=== PATIENT | female | born 1995 | race Caucasian/White ===

== ENCOUNTER 2019-12-08 16:40 | Emergency (ER) | payer BC ==
[2019-12-08] MEDS ORDERED: Ondansetron 4 MG Tab.DIS PO ONE (16:41)
[2019-12-08] MEDS ORDERED: Sodium Chloride 0.9% 10 ML Syringe FLUSH PRN (17:45)
[2019-12-08] MEDS ORDERED: HYDROmorphone 1 MG/ML Syringe IVPUSH ONE (18:22)
[2019-12-08 18:34] LABS: ANION GAP 11.3 mEq/L (7-13); CHLORIDE,CL 101 mmol/L (98-107); SODIUM,NA 140 mmol/L (136-145)
[2019-12-08] MEDS ORDERED: Sodium Chloride 0.9% 1,000 ML IV ONE (19:05)
--- NOTE | 2019-12-08 19:17 | EDM.PDOC ---
Scribed by Kailyn Gama 12/08/191916 for Lucía Yost NP <Lucía Yost - Last Filed: 12/08/19 19:16> ED HPI GENERAL MEDICAL PROBLEM - General Chief Complaint: Back Pain or Injury Stated Complaint: LOWER BACK PAIN/RT SIDE PAIN Time Seen by Provider: 12/08/19 18:13 Source of Information: Reports: Patient, RN, RN Notes Reviewed History Limitations: Reports: No Limitations - History of Present Illness INITIAL COMMENTS - FREE TEXT/NARRATIVE: Patient presents to ER with complaint of pain to right lower quadrant. This began as right lower back about 2:00 to 3:00 A.M. Pain now wraps around to the right lower quadrant. Denies chances of . States she has her appendix still. She has nausea, sexually active--no concerns for STD. No fever, chills, vomiting, diarrhea, chest pains, shortness of breath, urinary symptoms of frequency, urgency or burning. She has never had a kidney stone. She rates her pain 8/10 to right lower quadrant. She has tried Tylenol,, Ibuprofen, Pamprin with no help. 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: Acetaminophen, NSAIDS, Other Medication(s) right low back Pain Score (Numeric/FACES): 9 - Related Data Allergies Allergy/AdvReac Type Severity Reaction Status Date / Time Penicillins Allergy Other Verified 12/08/19 17:35 Home Meds: Home Meds Acetaminophen 500 mg PO Q4H PRN 12/08/19 [History] Ibuprofen 400 mg PO Q4H PRN 12/08/19 [History] Venlafaxine [Venlafaxine HCl ER] 150 mg PO DAILY 12/08/19 [History] Past Medical History HEENT History: Reports: None Cardiovascular History: Reports: None Respiratory History: Reports: None Gastrointestinal History: Reports: None Genitourinary History: Reports: None SCORER HELPER History: Reports: Other SCORER HELPER 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 Musculoskeletal History: Reports: None Neurological History: Reports: None Psychiatric History: Reports: None Endocrine/Metabolic History: Reports: None Hematologic History: Reports: None Immunologic History: Reports: None Oncologic (Cancer) History: Reports: None Dermatologic History: Reports: None - Infectious Disease History Infectious Disease History: Reports: None - Past Surgical History HEENT Surgical History: Reports: None Cardiovascular Surgical History: Reports: None Respiratory Surgical History: Reports: None GI Surgical History: Reports: None Social & Family History - Family History Family Medical History: Noncontributory ED ROS GENERAL - Review of Systems Review Of Systems: Comprehensive ROS is negative, except as noted in HPI. ED EXAM,LOWER BACK PAIN/INJURY - Physical Exam Exam: See Below Exam Limited By: No Limitations General Appearance: Alert, Moderate Distress Eye Exam: Bilateral Eye: EOMI, Normal Inspection, PERRL Ears: Normal External Exam, Normal Canal, Hearing Grossly Normal, Normal TMs Nose: Normal Inspection, Normal Mucosa, No Blood Throat/Mouth: Normal Inspection, Normal Lips, Normal Teeth, Normal Gums, Normal Oropharynx, Normal Voice, No Airway Compromise Head: Atraumatic, Normocephalic Neck: Normal Inspection, Supple, Non-Tender, Full Range of Motion Respiratory/Chest: No Respiratory Distress, Lungs Clear, Normal Breath Sounds, No Accessory Muscle Use, Chest Non-Tender Cardiovascular: Normal Peripheral Pulses, Regular Rate, Rhythm, No Edema, No Gallop, No JVD, No Murmur, No Rub GI/Abdominal: Other (tender right lower quadrant) (Female) Exam: Deferred Rectal (Female) Exam: Deferred Back Exam: Normal Inspection, Full Range of Motion, NT Extremities: Normal Inspection, Normal Range of Motion, Non-Tender, No Pedal Edema, Normal Capillary Refill Neurological: Alert, Normal Mood/Affect, Normal Dorsiflexion, CN II-XII Intact, Normal Plantar Flexion, Normal Gait, Normal Reflexes, No Motor/Sensory Deficits, Oriented x 3 Psychiatric: Normal Affect, Normal Mood Skin Exam: Warm, Dry, Intact, Normal Color, No Rash Lymphatic: No Adenopathy Departure - Departure Disposition: Home, Self-Care 01 Clinical Impression: Pyelonephritis - Discharge Information Instructions: Pyelonephritis, Adult, [id number] Forms: ED Department Discharge Additional Instructions: Tylenol and or Ibuprofen as needed for pain. Rest the next few days. Lots of fluids as much as possible. Zofran 1 tablet every 6 hrs as needed for nausea. RX given to the patient and 2 sent home from the ED. Cephalexin, 1 capsule 4 times a day for the next 10 days. RX given to the patient start tomorrow afternoon. If pain not controlled with above. [place] 1 tablet every 6 hrs with food as needed for pain. RX given to the patient. Return to the ED if new or worsening symptoms especially if uncontrolled fever or unable to tolerate oral medications or fluids. Follow up with PCP in the next 4-6 days if not improving sooner if worse. Sepsis Event Note (ED) - Evaluation Sepsis Screening Result: No Definite Risk <Herson Garcia - Last Filed: 12/08/19 21:59> Course - Vital Signs Last Recorded V/S: Last Vital Signs Temp 96.8 F L 12/08/19 17:29 Pulse 95 12/08/19 17:29 Resp 18 12/08/19 17:29 BP 127/91 H 12/08/19 17:29 Pulse Ox 99 12/08/19 17:29 - Orders/Labs/Meds Orders: Active Orders 24 hr Category Date Time Status Peripheral IV Care [RC] . DIRECTED Care 12/08/19 17:45 Active CULTURE URINE [RM] Stat Lab 12/08/19 18:05 Received Sodium Chloride 0.9% [Saline Flush] Med 12/08/19 17:45 Active 10 ml FLUSH ASDIRECTED PRN Peripheral IV Insertion Adult [OM.PC] Stat Oth 12/08/19 17:45 Ordered Medication Orders Sodium Chloride (Saline Flush) 10 ml FLUSH ASDIRECTED PRN PRN Reason: Keep Vein Open Last Admin: 12/08/19 18:06 Dose: 10 ml Documented by: LINDA Labs: Laboratory Tests 12/08/19 12/08/19 12/08/19 Range/Units 18:00 18:00 18:05 WBC 10.5 H (5.0-10.0) 10^3/uL RBC 4.56 (4.2-5.4) 10^6/uL Hgb 14.3 D (12.0-16.0) g/dL Hct 40.7 (37.0-47.0) % MCV 89.3 D (80-100) fL MCH 31.4 (27.0-34.0) pg MCHC 35.1 H (33.0-35.0) g/dL Plt Count 323 D (150-450) 10^3/uL Neut % (Auto) 63.9 (42.2-75.2) % Lymph % (Auto) 28.5 (20.5-50.1) % [place] % (Auto) 7.4 (2-8) % Eos % (Auto) 0.1 L (1.0-3.0) % Baso % (Auto) 0.1 (0.0-1.0) % Add Manual Diff Yes Neutrophils % (Manual) 60 (42-75) % Band Neutrophils % 5 % Lymphocytes % (Manual) 29 (20-50) % Monocytes % (Manual) 6 (2-8) % Sodium 140 (136-145) mmol/L Potassium 3.3 L (3.5-5.1) mmol/L Chloride 101 (98-107) mmol/L Carbon Dioxide 31 (21-32) mmol/L Anion Gap 11.3 (7-13) mEq/L BUN 8 (7-18) mg/dL Creatinine 0.95 (0.55-1.02) mg/dL Est Cr Clr Drug Dosing 65.02 mL/min Estimated GFR (MDRD) > 60 BUN/Creatinine Ratio 8.4 (No establ ref range) Glucose 110 H (74-99) mg/dL Calcium 8.9 (8.5-10.1) mg/dL Total Bilirubin 0.2 (0.2-1.0) mg/dL AST 20 (15-37) U/L ALT 49 (14-59) U/L Alkaline Phosphatase 112 (46-116) U/L Total Protein 7.6 (6.4-8.2) g/dL Albumin 3.7 (3.4-5.0) g/dL Globulin 3.9 Albumin/Globulin Ratio 0.9 Urine Color Yellow (YELLOW) Urine Appearance Slightly cloudy (CLEAR) Urine pH 6.0 (5.0-9.0) Ur Specific [place] >= 1.030 (1.005-1.030) Urine Protein Negative (NEGATIVE) Urine Glucose (UA) Negative (NEGATIVE) Urine Ketones Negative (NEGATIVE) Urine Occult Blood Small H (NEGATIVE) Urine Nitrite Negative (NEGATIVE) Urine Bilirubin Negative (NEGATIVE) Urine Urobilinogen 0.2 (0.2-1.0) mg/dL Ur Leukocyte Esterase Small H (NEGATIVE) Urine RBC 5-10 H /HPF Urine WBC 30-40 H (0-5/HPF) /HPF Ur Epithelial Cells Moderate H (NOT SEEN) /HPF Amorphous Sediment Few (NOT SEEN) /HPF Urine Bacteria Few (0-FEW/HPF) /HPF Urine Mucus Rare (NOT SEEN) /LPF Urine HCG, Qual 12/08/19 Range/Units 18:05 WBC (5.0-10.0) 10^3/uL RBC (4.2-5.4) 10^6/uL Hgb (12.0-16.0) g/dL Hct (37.0-47.0) % MCV (80-100) fL MCH (27.0-34.0) pg MCHC (33.0-35.0) g/dL Plt Count (150-450) 10^3/uL Neut % (Auto) (42.2-75.2) % Lymph % (Auto) (20.5-50.1) % [place] % (Auto) (2-8) % Eos % (Auto) (1.0-3.0) % Baso % (Auto) (0.0-1.0) % Add Manual Diff Neutrophils % (Manual) (42-75) % Band Neutrophils % % Lymphocytes % (Manual) (20-50) % Monocytes % (Manual) (2-8) % Sodium (136-145) mmol/L Potassium (3.5-5.1) mmol/L Chloride (98-107) mmol/L Carbon Dioxide (21-32) mmol/L Anion Gap (7-13) mEq/L BUN (7-18) mg/dL Creatinine (0.55-1.02) mg/dL Est Cr Clr Drug Dosing mL/min Estimated GFR (MDRD) BUN/Creatinine Ratio (No establ ref range) Glucose (74-99) mg/dL Calcium (8.5-10.1) mg/dL Total Bilirubin (0.2-1.0) mg/dL AST (15-37) U/L ALT (14-59) U/L Alkaline Phosphatase (46-116) U/L Total Protein (6.4-8.2) g/dL Albumin (3.4-5.0) g/dL Globulin Albumin/Globulin Ratio Urine Color (YELLOW) Urine Appearance (CLEAR) Urine pH (5.0-9.0) Ur Specific [place] (1.005-1.030) Urine Protein (NEGATIVE) Urine Glucose (UA) (NEGATIVE) Urine Ketones (NEGATIVE) Urine Occult Blood (NEGATIVE) Urine Nitrite (NEGATIVE) Urine Bilirubin (NEGATIVE) Urine Urobilinogen (0.2-1.0) mg/dL Ur Leukocyte Esterase (NEGATIVE) Urine RBC /HPF Urine WBC (0-5/HPF) /HPF Ur Epithelial Cells (NOT SEEN) /HPF Amorphous Sediment (NOT SEEN) /HPF Urine Bacteria (0-FEW/HPF) /HPF Urine Mucus (NOT SEEN) /LPF Urine HCG, Qual Negative Meds: Medications Generic Name Dose Route Start Last Admin Trade Name Freq PRN Reason Stop Dose Admin Sodium Chloride 10 ml 12/08/19 17:45 12/08/19 18:06 Saline Flush FLUSH 10 ml ASDIRECTED PRN Administration Keep Vein Open Discontinued Medications Generic Name Dose Route Start Last Admin Trade Name Freq PRN Reason Stop Dose Admin Diphenhydramine HCl 25 mg 12/08/19 19:56 12/08/19 20:06 Benadryl IVPUSH 12/08/19 19:57 25 mg ONETIME ONE Administration Hydromorphone HCl 1 mg 12/08/19 18:22 12/08/19 18:26 Dilaudid IVPUSH 12/08/19 18:23 1 mg ONETIME ONE Administration Sodium Chloride 1,000 mls @ 999 mls/hr 12/08/19 19:05 12/08/19 19:26 Normal Saline IV 12/08/19 20:05 999 mls/hr .BOLUS ONE Administration Ceftriaxone Sodium 2 gm/ 100 mls @ 200 mls/hr 12/08/19 19:56 12/08/19 20:09 Sodium Chloride IV 12/08/19 20:25 200 mls/hr ONETIME ONE Administration Ketorolac Tromethamine 30 mg 12/08/19 19:56 12/08/19 20:07 Toradol IVPUSH 12/08/19 19:57 30 mg ONETIME ONE Administration Ondansetron HCl 4 mg 12/08/19 20:01 12/08/19 20:11 Zofran IV 12/08/19 20:02 4 mg ONETIME ONE Administration Ondansetron HCl Confirm 12/08/19 20:04 12/08/19 20:09 Zofran Odt Administered 12/08/19 20:05 Not Given Dose 8 mg .ROUTE .EVIAGENICS-MED ONE - Radiology Interpretation Free Text/Narrative:: CT abd pelvis per radiology No evidence of acute abdominopelvic pathology. Appendix normal. - Re-Assessments/Exams Free Text/Narrative Re-Assessment/Exam: 12/08/19 19:52 I assumed care of this patient at shift change at 1900. She is in CT scanning. 12/08/19 19:57 CT scan of the abdomen pelvis was really unremarkable. With the small amount of elevation of the white blood cell count as well as the urinary tract infection repeat exam of her back shows she clearly has some right-sided CVA tenderness concerning for pyelonephritis. Her CT scan was without contrast so it is tough to see if there is any perinephric stranding on the right side although with her presentation and a normal appendix working to treat her for pyelonephritis at this time. She still complains of pain of 8 out of 10 as well as nausea. We will give her ceftriaxone 2 g IV piggyback as well as some Toradol and Benadryl for pain and nausea. 12/08/19 21:58 The patient felt much better after the above therapy. I discussed the concerns of a pyelonephritis with the patient and plan of care. she was comfortable with this plan and her questions answered. Departure - Departure Time of Disposition: 19:59 Sepsis Event Note (ED) - Focused Exam Vital Signs: Vital Signs Temp Pulse Resp BP Pulse Ox 12/08/19 17:29 96.8 F L 95 18 127/91 H 99 - Assessment/Plan Assessment:: Pyelonephritis Plan: Tylenol and or Ibuprofen as needed for pain. Rest the next few days. Lots of fluids as much as possible. Zofran 1 tablet every 6 hrs as needed for nausea. RX given to the patient and 2 sent home from the ED. Cephalexin, 1 capsule 4 times a day for the next 10 days. RX given to the patient start tomorrow afternoon. If pain not controlled with above. [place] 1 tablet every 6 hrs with food as needed for pain. RX given to the patient. Return to the ED if new or worsening symptoms especially if uncontrolled fever or unable to tolerate oral medications or fluids. Follow up with PCP in the next 4-6 days if not improving sooner if worse. I have read and agree with the documentation that has been completed regarding this visit. By signing this record, I attest that the documentation was completed in my physical presence and is an accurate record of the encounter.
--- NOTE | 2019-12-08 19:50 | CT ---
PROCEDURE INFORMATION: Exam: CT Abdomen And Pelvis Without Contrast Exam date and time: 12/08/2019 7:16 PM Age: 24 years old Clinical indication: Abdominal pain; Localized; Right lower quadrant (rlq); Additional info: Rlq pain TECHNIQUE: Imaging protocol: Computed tomography of the abdomen and pelvis without contrast. Radiation optimization: All CT scans at this facility use at least one of these dose optimization techniques: automated exposure control; mA and/or kV adjustment per patient size (includes targeted exams where dose is matched to clinical indication); or iterative reconstruction. COMPARISON: No relevant prior studies available. FINDINGS: Liver: Normal. No mass. Gallbladder and bile ducts: Normal. No calcified stones. No ductal dilation. Pancreas: Normal. No ductal dilation. Spleen: Normal. No splenomegaly. Adrenals: Normal. No mass. Kidneys and ureters: Normal. No hydronephrosis. Stomach and bowel: Unremarkable. No obstruction. No mucosal thickening. Appendix: A normal appendix is identified. Intraperitoneal space: Unremarkable. No free air. No significant fluid collection. Vasculature: Unremarkable. No abdominal aortic aneurysm. Lymph nodes: Unremarkable. No enlarged lymph nodes. Bladder: Unremarkable as visualized. Reproductive: Unremarkable as visualized. Bones/joints: Unremarkable. No acute fracture. Soft tissues: Unremarkable. IMPRESSION: No evidence of acute abdominopelvic pathology.
[2019-12-08] MEDS ORDERED: Ketorolac 30 MG/ML SDV IVPUSH ONE (19:56)
[2019-12-08] MEDS ORDERED: diphenhydrAMINE 50 MG/ML SDV IVPUSH ONE (19:56)
[2019-12-08] MEDS ORDERED: cefTRIAXone 2 GM in Sodium Chloride 0.9% 100 ML IV ONE (19:56)
[2019-12-08] MEDS ORDERED: Ondansetron 4 MG/2 ML SDV IV ONE (20:01)
[2019-12-08] MEDS ORDERED: Ondansetron 4 MG Tab.DIS ONE (20:04)
== END 2019-12-08 20:45 | disposition home or self-care (01) ==
LOC: DL.ED 16:40
DX: N12 Tubulo-interstitial nephritis, not specified as acute or chronic (principal); Z88.0 Allergy status to penicillin; Z79.899 Other long term (current) drug therapy
CPT/HCPCS: 36415; 74176; 80053; 81001; 81025; 85025; 87086; 96361; 96365; 99284; A9270; J0696; J1170; J1200; J1885; J2405; J7030; J7050

== ENCOUNTER 2020-03-03 20:49 | Emergency (ER) | payer BC ==
[2020-03-03] MEDS ORDERED: Ondansetron 4 MG Tab.DIS PO ONE (20:50)
[2020-03-03] MEDS ORDERED: Sodium Chloride 0.9% 1,000 ML IV ONE (21:32)
[2020-03-03] MEDS ORDERED: Ondansetron 4 MG/2 ML SDV IVPUSH ONE ×2 (21:32→22:45)
--- NOTE | 2020-03-03 21:38 | EDM.PDOC ---
ED HPI GENERAL MEDICAL PROBLEM - General Chief Complaint: Gastrointestinal Problem Stated Complaint: TESTED POSITIVED FOR COVID,SOB,CAN'TKEEP DOWN FOOD Time Seen by Provider: 03/03/20 21:20 Source of Information: Reports: Patient History Limitations: Reports: No Limitations - History of Present Illness INITIAL COMMENTS - FREE TEXT/NARRATIVE: This 24 yo female patient reports to the ED due to increased nausea and vomiting. The patient reports she was diagnosed with COVID about 1 week ago, has been having some minor shortness of breath throughout the illness, but started to become nauseated with frequent vomiting over the past 24 hours. The patient reports she has not been able to keep anything down. Onset: Today Duration: Constant Location: Reports: Abdomen Quality: Reports: Other Severity: Moderate Improves with: Reports: None Worsens with: Reports: None Context: Reports: Other Associated Symptoms: Reports: Nausea/Vomiting, Shortness of Breath Left Anterior Chest Pain Score (Numeric/FACES): 4 - Related Data Allergies Allergy/AdvReac Type Severity Reaction Status Date / Time Penicillins Allergy Other Verified 03/03/20 21:20 Home Meds: Home Meds Acetaminophen 500 mg PO Q4H PRN 12/08/19 [History] Ibuprofen 400 mg PO Q4H PRN 12/08/19 [History] Venlafaxine [Venlafaxine HCl ER] 150 mg PO DAILY 12/08/19 [History] Past Medical History HEENT History: Reports: None Cardiovascular History: Reports: None Respiratory History: Reports: None Gastrointestinal History: Reports: None Genitourinary History: Reports: None 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 Musculoskeletal History: Reports: None Neurological History: Reports: None Psychiatric History: Reports: None Endocrine/Metabolic History: Reports: None Hematologic History: Reports: None Immunologic History: Reports: None Oncologic (Cancer) History: Reports: None Dermatologic History: Reports: None - Infectious Disease History Infectious Disease History: Reports: None - Past Surgical History HEENT Surgical History: Reports: None Cardiovascular Surgical History: Reports: None Respiratory Surgical History: Reports: None GI Surgical History: Reports: None Social & Family History - Family History Family Medical History: Noncontributory - Tobacco Use Smoking Status *Q: Never Smoker Second Hand Smoke Exposure: No - Caffeine Use Caffeine Use: Reports: Soda - Recreational Drug Use Recreational Drug Use: No ED ROS GENERAL - Review of Systems Review Of Systems: Comprehensive ROS is negative, except as noted in HPI. ED EXAM, GI/ABD - Physical Exam Exam: See Below Exam Limited By: No Limitations General Appearance: Alert, WD/WN, Moderate Distress Eyes: Bilateral: Normal Appearance, EOMI Ears: Normal External Exam, Normal Canal, Hearing Grossly Normal, Normal TMs Nose: Normal Inspection, Normal Mucosa, No Blood Throat/Mouth: Normal Inspection, Normal Lips, Normal Teeth, Normal Gums, Normal Oropharynx, Normal Voice, No Airway Compromise Head: Atraumatic, Normocephalic Neck: Normal Inspection, Supple, Non-Tender, Full Range of Motion Respiratory/Chest: No Respiratory Distress, Lungs Clear, Normal Breath Sounds, No Accessory Muscle Use, Chest Non-Tender Cardiovascular: Normal Peripheral Pulses GI/Abdominal Exam: Normal Bowel Sounds, Soft, No Organomegaly, No Distention, No Abnormal Bruit, No Mass, Pelvis Stable, Tender (minor diffuse tenderness) (Female) Exam: Deferred Rectal (Female) Exam: Deferred Back Exam: Normal Inspection, Full Range of Motion, NT Extremities: Normal Inspection, Normal Range of Motion, Non-Tender, Normal Capillary Refill, No Pedal Edema Neurological: Alert, Oriented, CN II-XII Intact, Normal Cognition, Normal Gait, Normal Reflexes, No Motor/Sensory Deficits Psychiatric: Normal Affect, Normal Mood Skin Exam: Warm, Dry, Intact, Normal Color, No Rash Lymphatic: No Adenopathy Course - Vital Signs Last Recorded V/S: Last Vital Signs Temp 36.1 C 03/03/20 21:11 Pulse 81 03/03/20 22:04 Resp 19 03/03/20 22:04 BP 113/70 03/03/20 22:04 Pulse Ox 99 03/03/20 22:04 - Orders/Labs/Meds Labs: Laboratory Tests 03/03/20 03/03/20 Range/Units 21:53 21:53 WBC 7.0 (5.0-10.0) 10^3/uL RBC 4.96 (4.2-5.4) 10^6/uL Hgb 15.2 (12.0-16.0) g/dL Hct 43.3 (37.0-47.0) % MCV 87.3 (80-100) fL MCH 30.6 (27.0-34.0) pg MCHC 35.1 H (33.0-35.0) g/dL Plt Count 364 (150-450) 10^3/uL Neut % (Auto) 63.8 (42.2-75.2) % Lymph % (Auto) 27.0 (20.5-50.1) % [place] % (Auto) 9.1 H (2-8) % Eos % (Auto) 0.0 L (1.0-3.0) % Baso % (Auto) 0.1 (0.0-1.0) % Sodium 142 (136-145) mmol/L Potassium 3.5 (3.5-5.1) mmol/L Chloride 103 (98-107) mmol/L Carbon Dioxide 28 (21-32) mmol/L Anion Gap 14.5 H (7-13) mEq/L BUN 10 (7-18) mg/dL Creatinine 0.79 (0.55-1.02) mg/dL Est Cr Clr Drug Dosing 78.19 mL/min Estimated GFR (MDRD) > 60 BUN/Creatinine Ratio 12.7 (No establ ref range) Glucose 89 (74-99) mg/dL Calcium 9.4 (8.5-10.1) mg/dL Total Bilirubin 0.5 (0.2-1.0) mg/dL AST 38 H (15-37) U/L ALT 71 H (14-59) U/L Alkaline Phosphatase 142 H (46-116) U/L Total Protein 8.8 H (6.4-8.2) g/dL Albumin 4.0 (3.4-5.0) g/dL Globulin 4.8 Albumin/Globulin Ratio 0.8 Meds: Medications Discontinued Medications Generic Name Dose Route Start Last Admin Trade Name Freq PRN Reason Stop Dose Admin Sodium Chloride 1,000 mls @ 999 mls/hr 03/03/20 21:32 03/03/20 21:55 Normal Saline IV 03/03/20 22:32 999 mls/hr .BOLUS ONE Administration Ondansetron HCl 4 mg 03/03/20 21:32 03/03/20 21:51 Zofran IVPUSH 03/03/20 21:33 4 mg ONETIME ONE Administration Ondansetron HCl 4 mg 03/03/20 22:45 Zofran IVPUSH 03/03/20 22:46 ONETIME ONE Departure - Departure Time of Disposition: 22:48 Disposition: Home, Self-Care 01 Condition: Fair Clinical Impression: Gastroenteritis - Discharge Information *PRESCRIPTION DRUG MONITORING PROGRAM REVIEWED*: Not Applicable *COPY OF PRESCRIPTION DRUG MONITORING REPORT IN PATIENT LIDIA: Not Applicable Instructions: Viral Gastroenteritis, Adult, [id number] Forms: ED Department Discharge Care Plan Goals: The patient was advised of the examination and lab results during the visit. The patient was given IV fluids and IV Zofran while in the ED. The patient was discharged with Zofran ODT #2 to take 1 by mouth every 6 hours and a script for Zofran (4 mg) #20 to take 1 by mouth every 6 hours as needed. The patient was encouraged to stick to a BRAT diet (bananas, rice, applesauce and toast) with small frequent sips of fluid. If the patient has any additional symptoms or concerns, the patient should either return to the emergency department or visit her primary care facility. Sepsis Event Note (ED) - Evaluation Sepsis Screening Result: No Definite Risk - Focused Exam Vital Signs: Vital Signs Temp Pulse Resp BP Pulse Ox 03/03/20 22:04 81 19 113/70 99 03/03/20 21:11 36.1 C 89 19 117/102 H 99
[2020-03-03 22:41] LABS: ANION GAP 14.5 mEq/L (7-13); CHLORIDE,CL 103 mmol/L (98-107); SODIUM,NA 142 mmol/L (136-145)
[2020-03-03] MEDS ORDERED: Ondansetron 4 MG Tab.DIS ONE (22:50)
== END 2020-03-03 23:05 | disposition home or self-care (01) ==
LOC: DL.ED 20:49
DX: K52.9 Noninfective gastroenteritis and colitis, unspecified (principal); Z88.0 Allergy status to penicillin; Z79.899 Other long term (current) drug therapy
CPT/HCPCS: 36415; 80053; 85025; 96361; 96374; 96376; 99284; A9270; J2405; J7030

== ENCOUNTER 2020-05-06 14:06 | Emergency (ER) | payer BC | END 2020-05-06 14:25 | disposition left against medical advice (07) | LOC: DL.ED 14:06 | DX: Z53.21 Procedure and treatment not carried out due to patient leaving prior to being seen by health care provider (principal) ==

== ENCOUNTER 2020-10-22 13:34 | Emergency (ER) | payer BC | END 2020-10-22 16:42 | disposition left against medical advice (07) | LOC: DL.ED 13:34 | DX: Z53.21 Procedure and treatment not carried out due to patient leaving prior to being seen by health care provider (principal) | CPT/HCPCS: 36415; 81001; 84703; 85027; 87086 ==

== ENCOUNTER 2020-11-26 12:04 | Emergency (ER) | payer BC | END 2020-11-26 15:25 | disposition left against medical advice (07) | LOC: DL.ED 12:04 | DX: Z53.21 Procedure and treatment not carried out due to patient leaving prior to being seen by health care provider (principal) ==

== ENCOUNTER 2021-05-19 12:29 | Emergency (ER) | payer BC ==
--- NOTE | 2021-05-19 13:07 | EDM.PDOC ---
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 The patient states she was diagnosed with an ovarian cyst 14 days ago at the [place] [facility]; she has since been to an OBGYN for ongoing lower abdominal pain for which she was prescribed vaginal Valium suppositories in an attempt to relax her pelvic floor. She presents today as the cramping pain to her right lower abdomen has not improved and she is now experiencing vaginal bleeding. The patient reports her LMP was April 06, or 43 days ago. Additionally, she notes nausea with one bout of bilious emesis. She denies fever, shaking chills, palpitations, hematemesis, dyspepsia, dysuria, hematuria, diarrhea, or vaginal discharge. She has taken her prescribed Valium, as well as ibuprofen, acetaminophen, and previously prescribed oxycodone, none of which provide alleviation in her symptoms. The patient denies tobacco, alcohol, or recreational drug use. Right Lower Pelvic Pain Score (Numeric/FACES): 9 - Related Data Allergies Allergy/AdvReac Type Severity Reaction Status Date / Time bupropion Allergy Facial Verified 05/19/21 12:45 Swelling Penicillins Allergy Other Verified 05/19/21 12:45 Home Meds: Home Meds Acetaminophen 500 mg PO Q4H PRN 12/08/19 [History] Ibuprofen 400 mg PO Q4H PRN 12/08/19 [History] Vortioxetine Hydrobromide [Trintellix] 10 mg PO DAILY 05/19/21 [History] diazePAM [Valium.] 5 mg VAG .Q4-6HR PRN 05/19/21 [History] oxyCODONE 5 mg PO ASDIRECTED PRN 05/19/21 [History] Past Medical History HEENT History: Reports: None Cardiovascular History: Reports: None Respiratory History: Reports: None Gastrointestinal History: Reports: None Genitourinary History: Reports: None CENTRAL SUPPLY NURSE History: Reports: Other CENTRAL SUPPLY NURSE 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 Musculoskeletal History: Reports: None Neurological History: Reports: None Psychiatric History: Reports: None Endocrine/Metabolic History: Reports: None Hematologic History: Reports: None Immunologic History: Reports: None Oncologic (Cancer) History: Reports: None Dermatologic History: Reports: None - Infectious Disease History Infectious Disease History: Reports: None - Past Surgical History HEENT Surgical History: Reports: None Cardiovascular Surgical History: Reports: None Respiratory Surgical History: Reports: None GI Surgical History: Reports: None Social & Family History - Family History Family Medical History: No Pertinent Family History - Caffeine Use Caffeine Use: Reports: Energy Drinks ED ROS GENERAL - Review of Systems Review Of Systems: Comprehensive ROS is negative, except as noted in HPI. ED EXAM, GI/ABD - Physical Exam Exam: See Below Exam Limited By: No Limitations General Appearance: Alert, Mild Distress (Right lower abdominal pain), Obese Eyes: Bilateral: Normal Appearance, EOMI Ears: Normal External Exam, Normal Canal, Hearing Grossly Normal, Normal TMs Nose: Normal Inspection, Normal Mucosa, No Blood Throat/Mouth: Normal Inspection, Normal Oropharynx, Normal Voice, No Airway Compromise Head: Atraumatic, Normocephalic Neck: Normal Inspection, Supple, Non-Tender, Full Range of Motion Respiratory/Chest: No Respiratory Distress, Lungs Clear, Normal Breath Sounds, No Accessory Muscle Use, Chest Non-Tender. No: Crackles, Rales, Rhonchi, Wheezing, Stridor Cardiovascular: Normal Peripheral Pulses, Regular Rate, Rhythm, No Gallop, No Murmur, No Rub GI/Abdominal Exam: Normal Bowel Sounds, No Distention, No Abnormal Bruit, No Mass, Pelvis Stable, Tender (To RUQ and RLQ, more prominent to RLQ). No: Guarding, Rigid, Rebound (Female) Exam: Deferred Rectal (Female) Exam: Deferred Back Exam: Normal Inspection, Full Range of Motion Extremities: Normal Inspection, Normal Range of Motion, Non-Tender, No Pedal Edema, Normal Capillary Refill Neurological: Alert, Oriented, CN II-XII Intact, Normal Cognition, Normal Gait, No Motor/Sensory Deficits Psychiatric: Normal Affect, Normal Mood Skin Exam: Warm, Dry, Intact, Normal Color, No Rash. No: Cyanosis, Jaundice, Mottled, Pallor Course - Vital Signs Last Recorded V/S: Last Vital Signs Temp 97.6 F 12/16/21 12:35 Pulse 92 05/19/21 12:35 Resp 18 05/19/21 12:35 BP 126/90 05/19/21 12:35 Pulse Ox 98 05/19/21 12:35 - Orders/Labs/Meds Labs: Laboratory Tests 05/19/21 05/19/21 05/19/21 Range/Units 12:41 12:41 12:41 WBC (5.0-10.0) 10^3/uL RBC (4.2-5.4) 10^6/uL Hgb (12.0-16.0) g/dL Hct (37.0-47.0) % MCV (80-100) fL MCH (27.0-34.0) pg MCHC (33.0-35.0) g/dL Plt Count (150-450) 10^3/uL Neut % (Auto) (42.2-75.2) % Lymph % (Auto) (20.5-50.1) % [place] % (Auto) (2-8) % Eos % (Auto) (1.0-3.0) % Baso % (Auto) (0.0-1.0) % Sodium (136-145) mmol/L Potassium (3.5-5.1) mmol/L Chloride (98-107) mmol/L Carbon Dioxide (21-32) mmol/L Anion Gap (7-13) mEq/L BUN (7-18) mg/dL Creatinine (0.55-1.02) mg/dL Est Cr Clr Drug Dosing mL/min Estimated GFR (MDRD) BUN/Creatinine Ratio (No establ ref range) Glucose (70-99) mg/dL Lactic Acid (0.4-2.0) mmol/L Calcium (8.5-10.1) mg/dL Total Bilirubin (0.2-1.0) mg/dL AST (15-37) U/L ALT (14-59) U/L Alkaline Phosphatase (46-116) U/L C-Reactive Protein (0.0-0.9) mg/dL Total Protein (6.4-8.2) g/dL Albumin (3.4-5.0) g/dL Globulin Albumin/Globulin Ratio Amylase (25-115) U/L Lipase (73-393) U/L Urine Color Yellow (YELLOW) Urine Appearance Cloudy (CLEAR) Urine pH 7.0 (5.0-9.0) Ur Specific [place] 1.020 (1.005-1.030) Urine Protein 30 H (NEGATIVE) Urine Glucose (UA) Negative (NEGATIVE) Urine Ketones Trace H (NEGATIVE) Urine Occult Blood Large H (NEGATIVE) Urine Nitrite Negative (NEGATIVE) Urine Bilirubin Negative (NEGATIVE) Urine Urobilinogen 0.2 (0.2-1.0) mg/dL Ur Leukocyte Esterase Trace H (NEGATIVE) Urine RBC 30-40 H (0-5) /HPF Urine WBC 5-10 H (0-5/HPF) /HPF Ur Epithelial Cells Moderate H (NOT SEEN) /HPF Urine Bacteria Few (0-FEW/HPF) /HPF Urine Mucus Moderate H (NOT SEEN) /LPF Urine HCG, Qual Negative Urine Opiates Screen Negative (NEGATIVE) Ur Oxycodone Screen Negative (NEGATIVE) Urine Methadone Screen Negative (NEGATIVE) Ur Barbiturates Screen Negative (NEGATIVE) U Tricyclic Antidepress Negative (NEGATIVE) Ur Phencyclidine Scrn Negative (NEGATIVE) Ur Amphetamine Screen Negative (NEGATIVE) U Methamphetamines Scrn Negative (NEGATIVE) Urine MDMA Screen Negative (NEGATIVE) U Benzodiazepines Scrn Positive H (NEGATIVE) Urine Cocaine Screen Negative (NEGATIVE) U Marijuana (THC) Screen Negative (NEGATIVE) 05/19/21 05/19/21 05/19/21 Range/Units 13:04 13:04 13:04 WBC 7.7 (5.0-10.0) 10^3/uL RBC 4.78 (4.2-5.4) 10^6/uL Hgb 14.8 (12.0-16.0) g/dL Hct 42.0 (37.0-47.0) % MCV 87.9 (80-100) fL MCH 31.0 (27.0-34.0) pg MCHC 35.2 H (33.0-35.0) g/dL Plt Count 282 (150-450) 10^3/uL Neut % (Auto) 62.2 (42.2-75.2) % Lymph % (Auto) 31.0 (20.5-50.1) % [place] % (Auto) 6.7 (2-8) % Eos % (Auto) 0.0 L (1.0-3.0) % Baso % (Auto) 0.1 (0.0-1.0) % Sodium 141 (136-145) mmol/L Potassium 3.9 (3.5-5.1) mmol/L Chloride 105 (98-107) mmol/L Carbon Dioxide 25 (21-32) mmol/L Anion Gap 14.9 H (7-13) mEq/L BUN 8 (7-18) mg/dL Creatinine 0.80 (0.55-1.02) mg/dL Est Cr Clr Drug Dosing 75.87 mL/min Estimated GFR (MDRD) > 60 BUN/Creatinine Ratio 10.0 (No establ ref range) Glucose 98 (70-99) mg/dL Lactic Acid 1.2 (0.4-2.0) mmol/L Calcium 8.7 (8.5-10.1) mg/dL Total Bilirubin 0.3 (0.2-1.0) mg/dL AST 14 L (15-37) U/L ALT 33 (14-59) U/L Alkaline Phosphatase 94 (46-116) U/L C-Reactive Protein 1.2 H (0.0-0.9) mg/dL Total Protein 7.7 (6.4-8.2) g/dL Albumin 3.7 (3.4-5.0) g/dL Globulin 4.0 Albumin/Globulin Ratio 0.9 Amylase 50 (25-115) U/L Lipase 98 (73-393) U/L Urine Color (YELLOW) Urine Appearance (CLEAR) Urine pH (5.0-9.0) Ur Specific [place] (1.005-1.030) Urine Protein (NEGATIVE) Urine Glucose (UA) (NEGATIVE) Urine Ketones (NEGATIVE) Urine Occult Blood (NEGATIVE) Urine Nitrite (NEGATIVE) Urine Bilirubin (NEGATIVE) Urine Urobilinogen (0.2-1.0) mg/dL Ur Leukocyte Esterase (NEGATIVE) Urine RBC (0-5) /HPF Urine WBC (0-5/HPF) /HPF Ur Epithelial Cells (NOT SEEN) /HPF Urine Bacteria (0-FEW/HPF) /HPF Urine Mucus (NOT SEEN) /LPF Urine HCG, Qual Urine Opiates Screen (NEGATIVE) Ur Oxycodone Screen (NEGATIVE) Urine Methadone Screen (NEGATIVE) Ur Barbiturates Screen (NEGATIVE) U Tricyclic Antidepress (NEGATIVE) Ur Phencyclidine Scrn (NEGATIVE) Ur Amphetamine Screen (NEGATIVE) U Methamphetamines Scrn (NEGATIVE) Urine MDMA Screen (NEGATIVE) U Benzodiazepines Scrn (NEGATIVE) Urine Cocaine Screen (NEGATIVE) U Marijuana (THC) Screen (NEGATIVE) Meds: Medications Discontinued Medications Generic Name Dose Route Start Last Admin Trade Name Neo PRN Reason Stop Dose Admin Ketorolac Tromethamine 30 mg 05/19/21 13:35 05/19/21 13:42 Ketorolac 30 Mg/Ml Sdv IM 05/19/21 13:36 30 mg ONETIME ONE Administration Ondansetron HCl 4 mg 05/19/21 13:35 05/19/21 13:44 Ondansetron 4 Mg Tab.Dis PO 05/19/21 13:36 4 mg ONETIME ONE Administration - Radiology Interpretation Free Text/Narrative:: [facility] Final Radiology Report Call: [phone] assistance Online chat: [email or web address] Name: LISA GILLIAM Age: 26Years F Date: 05/19/2021 SSN: -- : [id number] Study: US PELVIS NON OB COMP Requesting Physician: Brandie Cruz Images: 29 Addl Studies: Provided Clinical History: Evaluation of right adenexal cyst. Previous RLQ pain and documented cyst rt. Contrast: Without Contrast Medium: Contrast Amount: Contrast Method: CONFIDENTIALITY STATEMENT This report is intended only for use by the referring physician, and only in accordance with law. If you received this in error, call [phone]. Page 1 of 1 PROCEDURE INFORMATION: Exam: US Nonobstetric Pelvis; Complete Exam date and time: 05/19/2021 2:38 PM Age: 26 years old Clinical indication: Pelvic pain; Additional info: Evaluation of right adenexal cyst. Previous rlq pain and documented cyst RT. TECHNIQUE: Imaging protocol: Transabdominal pelvic nonobstetric ultrasound. Complete exam. Real time ultrasound with image documentation. COMPARISON: No relevant prior studies available. FINDINGS: Uterus: The uterus measures 7.8 x 3.7 x 4.1 cm. The endometrial stripe measures 8 mm. Right ovary/adnexa: The right ovary measures 4.6 x 1.9 x 1.7 cm.. Normal flow demonstrated. Left ovary/adnexa: The left ovary measures 2.5 x 1.9 x 1.7 cm.. Normal flow demonstrated. Intraperitoneal space: No intraperitoneal fluid. Urinary bladder: Normal. IMPRESSION: Unremarkable pelvic ultrasound. Thank you for allowing us to participate in the care of your patient. Dictated and Authenticated by: Rohini Funk MD 05/19/2021 4:04 PM Central Time ([place] & [place]) - Re-Assessments/Exams Free Text/Narrative Re-Assessment/Exam: 05/19/21 Will obtain non-OB ultrasound. Findings of examination, lab work, and imaging reviewed with patient. Supportive cares for menstrual cramps discussed. Patient instructed to follow up with primary care provider regarding todays visit. Red flag signs and symptoms which would warrant immediate reevaluation reviewed. Patient verbalized understanding and agreement with the plan of care. Departure - Departure Time of Disposition: 16:21 Disposition: Home, Self-Care 01 Condition: Good Clinical Impression: Painful menstrual periods - Discharge Information *PRESCRIPTION DRUG MONITORING PROGRAM REVIEWED*: Not Applicable *COPY OF PRESCRIPTION DRUG MONITORING REPORT IN PATIENT LIDIA: Not Applicable Referrals: PCP,None [Primary Care Provider] - Forms: ED Department Discharge Additional Instructions: 1.) Re-establish with your primary care provider to discuss your ongoing pelvis pain. 2.) You may take ibuprofen (Advil/Motrin) 400-800mg every six hours, as pain persists. You may also take acetaminophen (Tylenol) 650-1000mg every six hours, as pain persists. You may stagger these medications so you are taking a dose of either every three hours. 3.) You may apply a warm compress to the lower abdomen for comfort. 4.) Drink small frequent sips of fluids to stay hydrated and avoid nausea. 5.) Eat small, snack-sized meals to avoid nausea.
[2021-05-19 13:19] LABS: AMPHETAMINES,URINE NEGATIVE (NEGATIVE); BARBITURATES,URINE NEGATIVE (NEGATIVE); BENZODIAZEPINE,URINE POSITIVE (NEGATIVE); MDMA (ECSTASY), URINE NEGATIVE (NEGATIVE); METHADONE,URINE NEGATIVE (NEGATIVE); METHAMPHETAMINES,URINE NEGATIVE (NEGATIVE); OPIATES,URINE NEGATIVE (NEGATIVE); OXYCODONE,URINE NEGATIVE (NEGATIVE); PHENCYCLIDINE,URINE NEGATIVE (NEGATIVE); TCA,URINE NEGATIVE (NEGATIVE)
[2021-05-19 13:31] LABS: ANION GAP 14.9 mEq/L (7-13); CHLORIDE,CL 105 mmol/L (98-107); SODIUM,NA 141 mmol/L (136-145)
[2021-05-19] MEDS ORDERED: Ondansetron 4 MG Tab.DIS PO ONE (13:35)
[2021-05-19] MEDS ORDERED: Ketorolac 30 MG/ML SDV IM ONE (13:35)
--- NOTE | 2021-05-19 16:05 | US ---
PROCEDURE INFORMATION: Exam: US Nonobstetric Pelvis; Complete Exam date and time: 05/19/2021 2:38 PM Age: 26 years old Clinical indication: Pelvic pain; Additional info: Evaluation of right adenexal cyst. Previous rlq pain and documented cyst RT. TECHNIQUE: Imaging protocol: Transabdominal pelvic nonobstetric ultrasound. Complete exam. Real time ultrasound with image documentation. COMPARISON: No relevant prior studies available. FINDINGS: Uterus: The uterus measures 7.8 x 3.7 x 4.1 cm. The endometrial stripe measures 8 mm. Right ovary/adnexa: The right ovary measures 4.6 x 1.9 x 1.7 cm.. Normal flow demonstrated. Left ovary/adnexa: The left ovary measures 2.5 x 1.9 x 1.7 cm.. Normal flow demonstrated. Intraperitoneal space: No intraperitoneal fluid. Urinary bladder: Normal. IMPRESSION: Unremarkable pelvic ultrasound.
== END 2021-05-19 16:41 | disposition home or self-care (01) ==
LOC: DL.ED 12:29
DX: N94.6 Dysmenorrhea, unspecified (principal); Z88.0 Allergy status to penicillin; Z88.8 Allergy status to other drugs, medicaments and biological substances
CPT/HCPCS: 36415; 76856; 80053; 80305-QW; 81001; 81025; 82150; 83605; 83690; 85025; 86140; 87077; 87086; 96372; 99284-25; A9270-GY; J1885

== ENCOUNTER 2021-11-15 15:45 | Observation (INO) | payer BC ==
[2021-11-15 17:29] LABS: ANION GAP 8.5 mEq/L (7-13)
[2021-11-15] MEDS ORDERED: Ondansetron 4 MG/2 ML SDV IVPUSH ONE ×2 (18:20→18:22)
[2021-11-15] MEDS ORDERED: Sodium Chloride 0.9% 1,000 ML IV ONE (18:21)
[2021-11-15] MEDS ORDERED: cefTRIAXone 1 GM in Sodium Chloride 0.9% 50 ML IV ONE (18:38)
[2021-11-15] MEDS ORDERED: Ketorolac 30 MG/ML SDV IVPUSH ONE (19:25)
[2021-11-15] MEDS ORDERED: Ondansetron 4 MG Tab.DIS PO PRN (20:06)
[2021-11-15] MEDS ORDERED: hydrOXYzine HCl 25 MG Tab PO PRN (20:08)
[2021-11-15] MEDS: Sodium Chloride 0.9% 1,000 ML IV SCH (21:23)
[2021-11-15] MEDS: Metoclopramide 10 MG/2 ML SDV IVPUSH PRN (21:24)
[2021-11-15] MEDS ORDERED: Tamsulosin 0.4 MG Cap.ER PO ONE (21:27)
[2021-11-15] MEDS: Morphine 2 MG/ML SYRINGE IVPUSH PRN (21:29)
[2021-11-16] MEDS: Morphine 2 MG/ML SYRINGE IVPUSH PRN ×5 (01:52→21:28)
[2021-11-16] MEDS: Sodium Chloride 0.9% 1,000 ML IV SCH ×3 (05:19→21:27)
[2021-11-16] MEDS: Acetaminophen 325 MG Tab PO PRN ×2 (08:14→19:26)
[2021-11-16] MEDS: Metoclopramide 10 MG/2 ML SDV IVPUSH PRN (08:16)
[2021-11-16] MEDS: cefTRIAXone 1 GM in Sodium Chloride 0.9% 50 ML IV SCH (17:16)
[2021-11-17] MEDS: Sodium Chloride 0.9% 1,000 ML IV SCH ×2 (05:04→14:04)
[2021-11-17] MEDS: Acetaminophen 325 MG Tab PO PRN ×2 (08:10→12:10)
[2021-11-17] MEDS: cefTRIAXone 1 GM in Sodium Chloride 0.9% 50 ML IV SCH (15:52)
== END 2021-11-17 17:08 | disposition home or self-care (01) ==
LOC: DL.ED 15:45 → DL.MS 19:42
PROVIDERS: ADMIT Family Medicine; ATTEND Family Medicine
DX: O23.01 Infections of kidney in pregnancy, first trimester (principal); O41.8X10 Other specified disorders of amniotic fluid and membranes, first trimester, not applicable or unspecified; O99.211 Obesity complicating pregnancy, first trimester; Z3A.01 Less than 8 weeks gestation of pregnancy; Z88.0 Allergy status to penicillin; Z88.8 Allergy status to other drugs, medicaments and biological substances; Z79.899 Other long term (current) drug therapy; Z20.822 Contact with and (suspected) exposure to COVID-19
CPT/HCPCS: 36415; 76770; 76801; 76817; 80053; 81001; 81025; 83605; 84702; 85025; 87086; A9270-GY; J0696; J1885; J2270; J2405; J2765; J7030; U0002

== ENCOUNTER 2022-02-03 08:17 | Emergency (ER) | payer BC ==
[2022-02-03] MEDS ORDERED: Ondansetron 4 MG/2 ML SDV IV ONE (09:17)
[2022-02-03] MEDS ORDERED: Sodium Chloride 0.9% 1,000 ML IV ONE (09:17)
[2022-02-03] MEDS ORDERED: Sodium Chloride 0.9% 10 ML Syringe FLUSH PRN (09:17)
[2022-02-03 10:01] LABS: ANION GAP 13.7 mEq/L (7-13)
[2022-02-03] MEDS ORDERED: cefTRIAXone 2 GM in Sodium Chloride 0.9% 100 ML IV ONE (11:37)
[2022-02-03] MEDS ORDERED: Morphine 4 MG/ML Syringe IVPUSH ONE (11:41)
== END 2022-02-03 13:45 | disposition home or self-care (01) ==
LOC: DL.ED 08:17
DX: O23.42 Unspecified infection of urinary tract in pregnancy, second trimester (principal); N39.0 Urinary tract infection, site not specified; O99.891 Other specified diseases and conditions complicating pregnancy; R10.9 Unspecified abdominal pain; O99.212 Obesity complicating pregnancy, second trimester; E66.9 Obesity, unspecified; Z88.0 Allergy status to penicillin; Z88.8 Allergy status to other drugs, medicaments and biological substances; Z3A.18 18 weeks gestation of pregnancy
CPT/HCPCS: 36415; 76805; 80053; 81001; 85025; 87086; 96361; 96365; 96375; 99283; J0696; J2270; J2405; J3490; J7030

== ENCOUNTER 2024-06-27 18:57 | Emergency (ER) | payer BC, OTHER ==
[2024-06-27] MEDS ORDERED: Sodium Chloride 0.9% 10 ML Syringe FLUSH PRN (19:16)
[2024-06-27 19:29] LABS: BASOPHILS PERCENT AUTO 0.3 % (0.0-1.0); HEMATOCRIT 36.2 % (37.0-47.0); LYMPHOCYTES PERCENT AUTO 26.7 % (20.5-50.1); MEAN CORPUSCULAR HEMOGLOBIN 30.4 pg (27.0-34.0); MEAN CORPUSCULAR HGB CONC 33.1 g/dL (33.0-35.0); MEAN CORPUSCULAR VOLUME 91.6 fL (80-100); MONOCYTES PERCENT AUTO 5.5 % (2-8); NEUTROPHILS PERCENT AUTO 66.5 % (42.2-75.2); PLATELET COUNT,PLT 275 10^3/uL (150-450); RED BLOOD CELL COUNT 3.95 10^6/uL (4.2-5.4); WHITE BLOOD CELL COUNT,WBC 10.4 10^3/uL (5.0-10.0)
[2024-06-27 19:49] LABS: A/G RATIO 0.63; ALBUMIN 2.7 g/dL (3.4-5.0); ANION GAP 12.2 mEq/L (7-13); BILIRUBIN TOTAL 0.2 mg/dL (0.2-1.0); BUN/CREATININE RATIO 14.3 (No establ ref range); CALCIUM 8.7 mg/dL (8.5-10.1); CREATININE 0.56 mg/dL (0.55-1.02); EST CRCL DRUG DOSING (CG) 110.85 mL/min; MAGNESIUM 1.7 mg/dL (1.8-2.4); POTASSIUM,K 3.2 mmol/L (3.5-5.1)
[2024-06-27] MEDS: diphenhydrAMINE 50 MG/ML SDV IM ONE (20:16)
[2024-06-27] MEDS: Take Home: hydrOXYzine HCl 25 MG Tab, 4 Tab Pack PO ONE (20:55)
[2024-07-03 05:43] LABS: BILE ACIDS, TOTAL 4 umol/L (0-10)
== END 2024-06-27 21:10 | disposition home or self-care (01) ==
LOC: DL.ED 18:57 → DL.OBCHECK 18:57 → EDSTATUS 19:01 → DL.ED 21:10
DX: O99.713 Diseases of the skin and subcutaneous tissue complicating pregnancy, third trimester (principal); L29.9 Pruritus, unspecified; Z3A.30 30 weeks gestation of pregnancy; Z88.0 Allergy status to penicillin; Z88.8 Allergy status to other drugs, medicaments and biological substances; Z90.49 Acquired absence of other specified parts of digestive tract
CPT/HCPCS: 36415; 80053; 82239; 83735; 85025; 96372; 99283; A9270; J1200

== ENCOUNTER 2025-04-22 17:12 | Emergency (ER) | payer BC, OTHER ==
[2025-04-22] MEDS ORDERED: Sodium Chloride 0.9% 10 ML Syringe FLUSH PRN (17:28)
[2025-04-22 17:58] LABS: BASOPHILS PERCENT AUTO 0.3 % (0.0-1.0); EOSINOPHILS PERCENT AUTO 1.4 % (1.0-3.0); LYMPHOCYTES PERCENT AUTO 34.3 % (20.5-50.1); MONOCYTES PERCENT AUTO 8.3 % (2-8); NEUTROPHILS PERCENT AUTO 55.7 % (42.2-75.2); PLATELET COUNT,PLT 272 10^3/uL (150-450); RED BLOOD CELL COUNT 4.36 10^6/uL (4.2-5.4); WHITE BLOOD CELL COUNT,WBC 9.6 10^3/uL (5.0-10.0)
[2025-04-22] MEDS: Ondansetron 4 MG/2 ML SDV IVPUSH ONE ×2 (18:06→20:15)
[2025-04-22 18:17] LABS: INR 1.0 (0.9-1.2); PTT,PARTIAL THROMBOPLSTIN TIME 26.7 SEC (22.0-34.0)
[2025-04-22 18:21] LABS: A/G RATIO 1.0; ALANINE AMINOTRANSFERASE,ALT 37 U/L (14-59); ASPARTATE AMNIOTRANSFERASE,AST 18 U/L (15-37); BILIRUBIN TOTAL 0.2 mg/dL (0.2-1.0); BLOOD UREA NITROGEN,BUN 7 mg/dL (7-18); CARBON DIOXIDE,CO2 30 mmol/L (21-32); CHLORIDE,CL 104 mmol/L (98-107); CREATININE 0.64 mg/dL (0.55-1.02); EST CRCL DRUG DOSING (CG) 91.48 mL/min; GLUCOSE RANDOM 94 mg/dL (70-99); POTASSIUM,K 3.4 mmol/L (3.5-5.1); PROTEIN TOTAL,TP 8.0 g/dL (6.4-8.2); SODIUM,NA 142 mmol/L (136-145)
[2025-04-22 18:24] LABS: LACTIC ACID 1.0 mmol/L (0.4-2.0)
[2025-04-22 18:25] LABS: ESTIMATED GFR 121 mL/min (>=60)
[2025-04-22] MEDS: Iopamidol 612 MG/ML 100 ML Bottle IVPUSH ONE (18:36)
[2025-04-22] MEDS: Take Home: Ondansetron 4 MG Tab.DIS, 5 Tab Pack PO ONE (20:53)
== END 2025-04-22 21:12 | disposition home or self-care (01) ==
LOC: DL.ED 17:12
DX: K59.00 Constipation, unspecified (principal); R14.1 Gas pain; E66.9 Obesity, unspecified; Z88.0 Allergy status to penicillin; Z88.8 Allergy status to other drugs, medicaments and biological substances; Z86.16 Personal history of COVID-19; Z90.49 Acquired absence of other specified parts of digestive tract; Z68.39 Body mass index [BMI] 39.0-39.9, adult
CPT/HCPCS: 36415; 74177; 80053; 83605; 84145; 85025; 85610; 85730; 87040; 96374; 96375; 96376; 99284; J1171; J2405; Q0162; Q9967